=== PATIENT | female | born 2000 | race Caucasian/White ===

== ENCOUNTER 2022-04-09 23:08 | Outpatient (CLI) | payer BC, SELFPAY ==
[2022-04-10 00:13] VITALS: BP 98/54; PULSE 83
--- NOTE | 2022-04-10 00:13 | CRLHL7_ITS ---
For Patients: As a result of the Century Cures Act, medical imaging exams and procedure reports are released immediately into your electronic medical record. You may view this report before your referring provider. If you have questions, please contact your health care provider. HISTORY: Evaluate cervical length. COMPARISON: None available of this gestation. TECHNIQUE: Limited ultrasound examination of the is performed with transabdominal technique. Transvaginal examination of the cervix was performed. FINDINGS: A single intrauterine gestation is seen in breech presentation with regular cardiac activity at 150 beats per minute. The placenta is posterior and is free of the cervical os. The placental grade is 0 and the amniotic fluid volume is normal. The cervix is normal in length, measuring 4.8 centimeters, with no sign of dilatation. The os does not open with pressure. IMPRESSION: Single intrauterine gestation in breech presentation with regular cardiac activity. Normal appearance of the cervix with no sign dilatation. Normal cervical length. Dictated by Farooq Porter MD @ 04/10/2022 1:53:50 AM (Electronically Signed)
[2022-04-10 00:15] VITALS: PULSE 84; RESP 16; TEMP 37; O2SAT 99
[2022-04-10 00:16] LABS: Appearance Urine Clear (Clear); Bilirubin Urine Negative (Negative); Blood Urine Trace-intact (Negative); Color Urine Yellow (Yellow); Glucose Urine Negative (Negative); Ketones Urine Negative (Negative); Leukocyte Esterase Urine Negative (Negative); Nitrite Urine Negative (Negative); Protein Urine Negative (Negative); Specific Gravity Urine 1.025 (1.000-1.030); Urobilinogen Urine 0.2 (0.2-1.0)
[2022-04-10 00:19] LABS: RBC Urine 0-2 (0-2); WBC Urine 0-2 (0-5)
[2022-04-10 00:20] LABS: Squamous Epithelial Cell Urine Few (None-Few)
[2022-04-10 00:21] LABS: Clue Cells No Clue Cells Seen (None Seen); Trichomonas No Trichomonas Seen (None Seen); Yeast No Yeast Seen (None Seen)
--- NOTE | 2022-04-10 00:48 | PM.OBLDTN ---
OB - Triage/Final Diagnosis Visit Information Time Seen by Provider: 00:48 Date Seen: 04/10/22 Narrative: The patient is a 21 year old 3 para 2 at 23+2 weeks gestation by 9 wk US, who presents with pelvic pain and pressure. Patient states she has been experiencing intermittent pelvic pain for 4-6 weeks. However, in the last 24 hours has noticed increased vaginal pressure to the point that ?I have to hold onto the bed to move around. ? Difficult to say if she has been experiencing contractions or cramping. She endorses mucousy discharge. About 1 week ago passed something that looked like her mucus plug. No vaginal bleeding. No loss of fluid. Normal movement. No prior history labor. Her other babies were born at term. She has been receiving care with Dr. Cooper at the [facility]. She had a level 2 ultrasound with [facility] on 03/18/22 that was done for atypical sex chromosomes on cell free DNA screening. This was unremarkable and showed ?normal cervical length. ? Evaluation Cervical dilation (cm): 0 Laboratory results: Laboratory Tests 04/09/22 04/09/22 Range/Units 23:56 23:56 Urine Color Yellow (Yellow) Urine Appearance Clear (Clear) Urine pH 7.0 (5.0-8.5) Ur Specific [place] 1.025 (1.000-1.030) Urine Protein Negative (Negative) Urine Glucose (UA) Negative (Negative) Urine Ketones Negative (Negative) Urine Blood Trace-intact A (Negative) Urine Nitrite Negative (Negative) Urine Bilirubin Negative (Negative) Urine Urobilinogen 0.2 (0.2-1.0) Ur Leukocyte Esterase Negative (Negative) Urine RBC 0-2 (0-2) Urine WBC 0-2 (0-5) Urine WBC Clumps None (None) Ur Squamous Epith Cells Few (None-Few) Urine Bacteria None (None) Vaginal Trichomonas No Trichomonas Seen (None Seen) Vaginal Yeast No Yeast Seen (None Seen) Vaginal Clue Cells No Clue Cells Seen (None Seen) Vital signs: Vital Signs - 24 hr 04/10/22 00:13 04/10/22 00:15 Pulse Rate 83 Blood Pressure 98/54 L Pulse Oximetry 99 Fetus (Single) Heart Rate Baseline: 140 [employer] Supervisor Variability: Moderate (11-25) Monitor Accelerations: Present Monitor Decelerations: None Final Diagnosis (1) Pelvic pressure in , antepartum: Status: Acute Problem details: Per RN, cervix was 1/50% on initial check. TVUS showed cervix 4.8 cm, closed. Upon my evaluation, external os 1 cm, internal os closed. Cervix long. Findings were discussed with patient. Recommend patient keep her upcoming follow-up appointment with Dr. Cooper in a few weeks. Contact the clinic or center if new or worsening symptoms at any time.
--- NOTE | 2022-04-10 03:29 | PC.OBNST ---
NST Note NST Note Start: 04/10/22 00:01 Freq: ONCE Status: Discharge Protocol: Document 04/10/22 02:26 JONN (Rec: 04/10/22 02:28 JONN [id number]) NST Note 3 Para (# of births) 2 EDC 08/05/22 Patient Presented with Complaint(s) of Contractions/cramping,Other Reactive Yes Appropriate for Gestational Age Yes RACHEL Wesley RNC Date 04/10/22 Reactive Yes Appropriate for Gestational Age Yes RACHEL Matias RN Date 04/10/22 OB NST charge Yes The provider's electronic signature indicates the NST is reactive/appropriate for gestational age. *Note to provider: If an addendum is required, open the patient's chart and click on the note under the Nurse/Allied Health tab.
== END 2022-04-10 02:15 | disposition home or self-care (01) ==
LOC: OB OUT 23:38 → OB 04-10 00:23
PROVIDERS: Visit Provider Family Medicine
DX: O26.899 Other specified pregnancy related conditions, unspecified trimester (principal); R10.2 Pelvic and perineal pain
CPT/HCPCS: 59025; 76815; 76817; 81003; 81015; 87210; 99213

== ENCOUNTER 2022-07-22 18:41 | Inpatient (IN) | payer BC, SELFPAY ==
[2022-07-22] VITALS (23 sets, daily range): BP systolic 100–117; BP diastolic 55–71; PULSE 81–111; RESP 16; TEMP 36.7–36.9; O2SAT 99–100; BMI 25.2
[2022-07-22] MEDS: LACTATED RINGERS 1000 ML 1,000 ML IV (19:29)
[2022-07-22] MEDS: ROPIVACAINE 0.2% 100 ml 100 ML 10 MG EPIDURAL (20:01)
[2022-07-22 20:05] LABS: SARS PCR* Negative SARS-CoV-2 (Negative)
--- NOTE | 2022-07-22 20:31 | PM.ANBPRC ---
PFSH PFS Social History Smoking Status: Light tobacco smoker Meds Home Medications and Allergies Home Medications Medication Instructions Recorded Confirmed Type vitamin with calcium 1 tab PO DAILY 04/10/22 07/22/22 History no.72-iron 27 mg-folic acid 1 mg tablet ( Vitamins Plus Low Iron) docusate sodium 100 mg capsule mg PO 07/22/22 History Allergies Allergy/AdvReac Type Severity Reaction Status Date / Time No Known Drug Allergies Allergy Verified 04/10/22 00:11 Results Labs Labs: Laboratory Results - last 24 hr 07/22/22 18:38 SARS-CoV-2 (PCR) Negative SARS-CoV-2 Vital Signs Vital Signs: Last Vital Signs Temp 98.1 F 07/22/22 14:48 Pulse 85 07/22/22 20:31 Resp 16 07/22/22 14:48 BP 112/65 07/22/22 20:31 Pulse Ox 99 07/22/22 20:07 Height: 149.86 cm Anesthesia Procedures Epidural Insertion Patient Location: OB Start Time: 19:30 Stop Time: 20:30 Start Date: 07/22/22 Stop Date: 07/22/22 Reason for Block: procedure for pain Patient Position: sitting Performed By: Zen Eldridge Preanesthetic Checklist: IV checked, risks and benefits discussed, surgical consent, monitors and equipment checked, pre-op evaluation, timeout performed and anesthesia consent Prep: chlorhexidine gluconate Monitoring: blood pressure monitoring, continuous pulse oximetry and heart rate Approach: midline Vertebral Space: lumbar (1-5) Epidural Technique: SALLIE saline Needle Type: Tuohy needle Injection Technique: continuous catheter Needle gauge: 17 Needle Length (cm): 10 cm Needle Insertion Depth (cm): 6 Catheter Gauge: 19 Catheter Type: multi-orifice Catheter at skin depth (cm): 12 Test Dose Result: negative and lidocaine 1.5% with epinephrine 1 to 200,000
--- NOTE | 2022-07-22 21:10 | PM.OBHPLI ---
OB - H&P: HPI Labor/Induction History of Present Illness Date Seen: 07/22/22 Chief Complaint: The patient is a 22 year old 4 para 2 at 38 weeks gestation who presents with contractions Chief complaint: Maternity Narrative: Erin Gonzales is a 22 year old female History of Present Dating criteria: based on LMP (and 8 wk usd ) care: good care Ultrasounds: normal 1st trimester US and normal mid trimester US Medical complications: none Labs Blood type: O (+) positive Rubella: immune RPR/VDLR: nonreactive GBS status: negative HBsAG: negative Review of Systems Status of ROS: Reports: 6 or more systems reviewed and unremarkable except as noted in History and below Meds Home Medications and Allergies Home Medications Medication Instructions Recorded Confirmed Type vitamin with calcium 1 tab PO DAILY 04/10/22 07/22/22 History no.72-iron 27 mg-folic acid 1 mg tablet ( Vitamins Plus Low Iron) docusate sodium 100 mg capsule mg PO 07/22/22 History Allergies Allergy/AdvReac Type Severity Reaction Status Date / Time No Known Drug Allergies Allergy Verified 04/10/22 00:11 OB - H&P: Exam Physical Exam: Vital signs: Temp Pulse Resp BP Pulse Ox 98.1 F 85 16 110/63 99 07/22/22 14:48 07/22/22 20:36 07/22/22 14:48 07/22/22 20:36 07/22/22 20:07 Narrative: HEENT: Eyes: no scleral icterus or redness Ears: normal external ears Nose: no drainage Oropharnyx: moist membranes Heart RRR no murmur Lungs: clear Abdomen: pos bowel sounds gravid Cervix 5-6 cm -1 80% Skin: pink Ext: no swelling Mental status: appropriate OB - Problem Based A/P Additional Plan (1) Uterine contractions: Status: Acute (2) Spontaneous onset of labor: Status: Acute
[2022-07-22] MEDS: OXYTOCIN 30 unit/500 ML in NS 30 UNIT/500 ML BAG IVPB (22:55)
[2022-07-23] VITALS (14 sets, daily range): BP systolic 92–111; BP diastolic 53–68; PULSE 66–110; RESP 16; TEMP 36.9–37.2; O2SAT 97–99
[2022-07-23] MEDS: LACTATED RINGERS 1000 ML 1,000 ML 122 ML IV (00:49)
--- NOTE | 2022-07-23 03:07 | PM.OBPRCVD ---
Procedure Delivery date: 07/23/22 Procedure Done: [employer] Procedure Details: at 39 weeks gestation admitted for onset of labor History: regular uncomplicated care. Group B strep Neg Hep B neg, Hep c neg HIV Neg Rubella immune O pos blood type Presented 3 cm after contractions started at approx 5:30 pm on 07/21/22. Noted to have made cervical change around 6:30 on 07/22/22 AROM at clear fluid at 5 on 07/22/22 after receiving epidural Mom was Complete at 0130 on 07/22/22 Started pushing at 0137 on 07/22/22 Live born male infant delivered in vertex position at 0212 on 07/23/2022 Delayed 3 vessel cord doubly clamped and cut after delivery. Placenta delivered complete at 0217 on 07/22/2022 Perineum with second degree vaginal tear off to patients right. superficial tear to rectum. rectal muscle intact. Repaired in usual fashion. 3 interrupted sutures were placed to help approximate. bilateral superficial labial majora tears. rectum examine after repair no issues noted. Cervix examined and clots removed QBL 325 Pitocin given after delivery of [place] Infant Infant Gender: Male presentation: vertex Placental Delivery Description: Spontaneous (Apgars 8,9) Cord Description: 3 Vessels
[2022-07-23] MEDS: IBUPROFEN 600 MG TABLET PO ×3 (04:14→20:52)
[2022-07-23] MEDS: ACETAMINOPHEN 500 MG TABLET 1000 MG PO (09:57)
[2022-07-23] MEDS: DOCUSATE SODIUM 100 MG CAPSULE PO (09:57)
[2022-07-24 00:16] VITALS: BP 92/52; PULSE 66; RESP 16; TEMP 37; O2SAT 96
[2022-07-24 07:24] LABS: Hemoglobin* 7.8 gm/dL (12.0-16.0)
[2022-07-24 09:30] VITALS: BP 98/66; PULSE 77; RESP 16; TEMP 36.6; O2SAT 97
[2022-07-24] MEDS: DOCUSATE SODIUM 100 MG CAPSULE PO (09:50)
[2022-07-24] MEDS: IBUPROFEN 600 MG TABLET PO (09:50)
--- NOTE | 2022-07-24 10:38 | P.DS_ITS ---
DS: Providers Provider Time Seen by Provider: 10:00 Date Seen: 07/24/22 Date of admission: 07/22/22 18:41 Primary care physician: Not a Local Provider Admitting Clinician: Diane Cooper MD Attending Physician on discharge: Diane Cooper MD Date of Discharge: 07/24/22 DS: Diagnosis Discharge Diagnosis (1) Spontaneous onset of labor: Status: Acute Exam Narrative: Exam Narrative: HEENT: Eyes: no scleral icterus redness Ears: normal external ears Nose: no drainage Lungs: breathing easily Abdomen: pos bowel sounds exam uterine fundus below umbilicus Skin: pink Ext: no swelling Mental status: appropriate Const: Vital Signs, click to edit/add: Vital Signs - 24 hr 07/23/22 12:26 07/23/22 17:05 07/23/22 20:43 Temperature 98.5 F 98.4 F 98.9 F Pulse Rate [Pulse Oximeter] 75 66 80 Respiratory Rate 16 16 16 Blood Pressure [Le ft Arm] 100/62 104/66 104/68 Pulse Oximetry 97 99 98 Oxygen Delivery Me thod Room Air Room Air Room Air 07/23/22 20:52 07/24/22 00:16 07/24/22 09:30 Temperature 98.8 F 98.6 F 98 F Pulse Rate [Pulse Oximeter] 66 77 Respiratory Rate 16 16 Blood Pressure [Le ft Arm] 92/52 L 98/66 Pulse Oximetry 96 97 Oxygen Delivery Me thod Room Air Room Air OB - DS: Summary Hospital Course Hospital Course: The patient is a 22 year old G 4 P 3 at 38 weeks gestation that was admitted to the Center on 07/22/22 for labor. She had an uncomplicated vaginal delivery. She delivered a viable male infant. She is breast/bottle feeding. the patient has done well. Peripartum Data delivery method: Vaginal Laceration description: Perineal - 2nd Degree Episiotomy description: None complications: none Gender: Male Time Spent with Patient Time attestation: Total time spent providing and/or coordinating discharge services: Discharge Plan Discharge Disposition: Home, Self-Care Date of Admission: 07/22/22 18:41 Attending Provider on Discharge: Diane Cooper Primary Care Provider: Provider,Not a Local Condition: Stable Anticipated Discharge Date/Time: 07/24/22 10:42 Discharge Medications: Continued Vitamin Plus Low Iron 27 mg iron- 1 mg tablet 1 tab PO DAILY Label Comments: TAKE 1 TABLET BY MOUTH ONCE DAILY DISP IF ABLE COMBINATION WITH STOOL SOFTENER. Pt only takes occasionally d/t constipation. docusate sodium 100 mg capsule PO Label Comments: TAKE 1 CAPSULE BY MOUTH IN THE MORNING AND 1 IN THE EVENING Discharge Orders: Discharge Order (Routine); Ordered 07/24/22 Ordered By: Diane Cooper Patient Education: OB Vaginal/Bottle Feeding Activity Level: Activity as Tolerated Discharge Diet: Regular Follow Up Appointments: Diane Cooper MD [Staff Physician] - Provider,Not a Local [Primary Care Provider] - Forms: Street[employer] Info Instructions Discharge Comments: Follow up 6 wk visit. We will discuss getting your Nexplanon appointment when we see baby in clinic
== END 2022-07-24 12:26 | disposition home or self-care (01) | DRG 560 ==
LOC: OB OUT 07-23 03:28 → OB 07-23 03:29
PROVIDERS: Admitting Provider Family Medicine; Visit Provider Family Medicine
DX: O70.1 Second degree perineal laceration during delivery (principal); Z3A.39 39 weeks gestation of pregnancy; Z37.0 Single live birth
CPT/HCPCS: 1967; 36415; 85018; 87635; 99213; A9270; J2795; J7120; S0020